=== PATIENT | female | born 1990 | race Caucasian/White ===

== ENCOUNTER 2016-11-09 11:07 | Inpatient (IN) | payer OTHER ==
[~2016-11-09] VITALS: Ht 170.2 cm; Wt 88.9 kg
[~2016-11-09 11:07] MED LIST: HYDROCORTISONE28 G2 TP; PROAIR HFA8.5 GM IH
[2016-11-09 11:54] VITALS: BP 104/60
[2016-11-09 12:51] VITALS: BP 109/62
[2016-11-09 13:54] LABS: AMPHETAMINE NEGATIVE (500 ng/mL); BARBITURATES NEGATIVE (200 ng/mL); BENZODIAZEPINES NEGATIVE (150 ng/mL); COCAINE NEGATIVE (150 ng/mL); INTERNAL CONTROLS VALID? YES; METHADONE NEGATIVE (200 ng/mL); METHAMPHETAMINE NEGATIVE (500 ng/mL); OPIATES (MORPHINE) NEGATIVE (100 ng/mL); OXYCODONE NEGATIVE (100 ng/mL); PHENCYCLIDINE NEGATIVE (25 ng/mL); PROPOXYPHENE NEGATIVE (300 ng/mL); THC CANNABINOIDS NEGATIVE (50 ng/mL); TRICYCLIC ANTIDEPRESSANTS NEGATIVE (300 ng/mL)
[2016-11-09] MEDS ORDERED: ENDOCET 5-3251 EACH PO (14:26)
[2016-11-09] MEDS ORDERED: IBUPROFEN800 MG PO (14:26)
[2016-11-09 17:04] VITALS: BP 105/58
[2016-11-09 18:08] VITALS: BP 105/59
[2016-11-09 20:08] VITALS: BP 98/53
[2016-11-09 22:09] VITALS: BP 100/54
[2016-11-10] VITALS (7 sets, daily range): BP systolic 89–111; BP diastolic 47–61
[2016-11-10 06:47] LABS: EOSINOPHIL (%) 0.3 % (0-5); HEMATOCRIT 31.5 % (36.0-46.0); IMMATURE GRANULOCYTE (%) 0.6 % (0.0-0.7); IMMATURE GRANULOCYTE COUNT 0.1 K/uL; INSTRUMENT ABS NEUTROPHIL CT 9.9 K/uL; LYMPHOCYTE COUNT 1.7 K/uL (1.0-2.8); MCH 30.8 PG (29.0-34.0); MCHC 33.3 G/DL (30.0-36.0); MCV 92.4 FL (83-99); MEAN PLAT.VOLUME 12.2 uM^3 (9.5-12.4); MONOCYTE COUNT 0.9 K/uL (0-0.8); NEUTROPHIL (%) 78.6 % (45-76); NEUTROPHIL COUNT 9.9 K/uL (1.8-6.4); PLATELET COUNT 173 K/uL (156-360); RED BLOOD COUNT 3.41 M/uL (3.80-5.20); WHITE BLOOD COUNT 12.6 K/uL (4.1-10.2)
[2016-11-11 07:05] VITALS: BP 105/63
[2016-11-11 11:32] VITALS: BP 119/55
[2016-11-11 15:16] VITALS: BP 107/50
== END 2016-11-11 21:45 | disposition home or self-care (01) | DRG 766 ==
LOC: 2WEST 11:07 → 2SOUTH 13:07 → 2WEST 11-11 21:45
PROVIDERS: Obstetrics & Gynecology
PROC: 10D00Z1 Extraction of Products of Conception, Low, Open Approach (ICD-10-PCS; principal; 2016-11-09)
DX: O34.211 Maternal care for low transverse scar from previous cesarean delivery (principal); J45.909 Unspecified asthma, uncomplicated; K66.0 Peritoneal adhesions (postprocedural) (postinfection); L91.0 Hypertrophic scar; O99.52 Diseases of the respiratory system complicating childbirth; O99.824 Streptococcus B carrier state complicating childbirth; Z37.0 Single live birth; Z3A.40 40 weeks gestation of pregnancy; Z87.828 Personal history of other (healed) physical injury and trauma; R11.2 Nausea with vomiting, unspecified; O09.33 Supervision of pregnancy with insufficient antenatal care, third trimester
CPT/HCPCS: 36415; 85025; 86900; 86901; J0690; J1100; J1170; J2274; J2405; J2765; J7120